=== PATIENT | male | born 1955 | race Caucasian/White ===

== ENCOUNTER → 2017-03-11 | Outpatient (CLI) | payer OTHER ==
[~2017-03-11] MED LIST: ALBU.5I NEB; CALC600T25 PO; CHOL1CAP34 PO; DOCU2.5C PO; IBUP800T23 PO; IPRA17I INH; OXYC1TAB63 PO; TIOT1AER2 INH
[2017-03-11 13:26] LABS: HEMATOCRIT 46.8 % (39.0-51.0); MEAN CELL VOLUME 96.8 FL (80.0-100.0); MEAN CORPUSCULAR HEMOGLOBIN 32.4 PG (27.0-34.0); MEAN CORPUSCULAR HGB CONC 33.4 % (32.0-36.0); PLATELET COUNT 221 TH/MM3 (150-450); RED BLOOD COUNT 4.83 MIL/MM3 (4.50-5.90); RED CELL DISTRIBUTION WIDTH 14.2 % (11.6-17.2); REVIEW FLAG FINAL; WHITE BLOOD COUNT 7.1 TH/MM3 (4.0-11.0)
[2017-03-11 13:30] LABS: BLOOD, URINE NEG (NEG); COMMENT (UR) CULT NOT INDICATED; CULTURE IF INDICATED CULT NOT INDICATED; GLUCOSE,URINE NEG (NEG); HYALINE CAST, URINE 1 /lpf (RARE); KETONE, URINE NEG (NEG); MUCUS URINE FEW /lpf (OCC); NITRITE,URINE NEG (NEG); TRANSITIONAL EPI CELLS, URINE <1 /hpf; URINE COLOR YELLOW (YELLW/STRAW)
[2017-03-11 13:33] LABS: APTT (PATIENT) 25.4 SEC (24.3-30.1); INTERNATIONAL NORMALIZED RATIO 0.9 RATIO; PROTHROMBIN TIME - PATIENT 9.8 SEC (9.8-11.6)
--- NOTE | 2017-03-11 13:35 | RADRPT ---
EXAM DATE/TIME: 03/11/2017 13:07 [facility] COMPARISON: No previous studies available for comparison. INDICATIONS : Per-op thoracotomy. Evaluate for pneumothorax, pneumonia, or communicable diseases. MEDICAL HISTORY : None. SURGICAL HISTORY : None. ENCOUNTER: Initial ACUITY: 1 day PAIN SCORE: 0/10 LOCATION: Bilateral chest FINDINGS: There is a nodular density overlying the axillary region of the right lung. Lungs are otherwise clear . No evidence of pleural effusion. Cardiac contours are satisfactory. Thoracic skeleton is grossly in tact. CONCLUSION: Right upper lobe lung nodule. Erik Tam MD on March 11, 2017 at 13:32 Board Certified Radiologist. This report was verified electronically.
[2017-03-11 13:50] LABS: BICARBONATE 27.8 MEQ/L (21.0-32.0); POTASSIUM 3.6 MEQ/L (3.5-5.1)
--- NOTE | 2017-03-12 14:43 | EKG ---
Date Performed: 03/11/2017 Time Performed: 12:41:38 PTAGE: 61 years EKG: Sinus rhythm POSSIBLE LEFT ATRIAL ENLARGEMENT BORDERLINE ECG NO PREVIOUS TRACING DOCTOR: Mikael Richard Interpretating Date/Time 03/12/2017 14:37:36
== END ==
LOC: CPRE 12:14
PROVIDERS: ATTEND Thoracic Surgery (Cardiothoracic Vascular Surgery)
DX: Z01.812 Encounter for preprocedural laboratory examination (principal); Z01.811 Encounter for preprocedural respiratory examination; Z01.810 Encounter for preprocedural cardiovascular examination; R91.8 Other nonspecific abnormal finding of lung field; R94.31 Abnormal electrocardiogram [ECG] [EKG]
CPT/HCPCS: 36415; 71020; 80048; 81001; 85027; 85610; 85730; 93005

== ENCOUNTER 2017-03-18 06:02 | Inpatient (IN) | payer OTHER ==
[2017-03-18] VITALS (14 sets, daily range): BP systolic 92–103; BP diastolic 58–67; PULSE 66–87; RESP 17–19; TEMP 97.9–98.6; O2SAT 95–98
[~2017-03-18] VITALS: Ht 177.8 cm; Wt 79.0 kg
[~2017-03-18 06:02] MED LIST changes: -DOCU2.5C PO; -OXYC1TAB63 PO
[2017-03-18] MEDS ORDERED: INSULIN HUMAN REGULAR 1,000 UNITS/10 ML VIAL SQ PRN (06:30)
[2017-03-18] MEDS ORDERED: SODIUM CHLORID 0.9% 500 ML IV PRN (06:30)
[2017-03-18] MEDS ORDERED: POVIDONE IODINE 5% (ANTISEPSIS KIT) 4 APPLICATIONS EACH NARE PRN (06:30)
[2017-03-18] MEDS ORDERED: METOPROLOL TARTRATE 25 MG TAB PO PRN (06:30)
[2017-03-18] MEDS ORDERED: CHLORHEXIDINE GLUCONATE 2 % 1 PACK (2 CLOTHS) TOPICAL PRN (06:30)
[2017-03-18] MEDS ORDERED: LACTATED RINGER'S 1000 ML IV PRN (06:30)
[2017-03-18] MEDS ORDERED: ACETAMINOPHEN 1000 MG/100 ML 100 ML IV ONE (07:08)
[2017-03-18] MEDS ORDERED: SUGAMMADEX SODIUM 200 MG/2 ML VIAL IV PUSH ONE ×2 (07:08)
[2017-03-18] MEDS ORDERED: FAMOTIDINE 20 MG/2 ML VIAL ONE (07:11)
[2017-03-18] MEDS ORDERED: MIDAZOLAM HCL 2 MG/2 ML VIAL ONE (07:11)
[2017-03-18] MEDS ORDERED: RESP: ALBUTEROL 2.5 MG/3 ML NEB (SCH) ONE (07:17)
[2017-03-18] MEDS: BUPIVACAINE LIPOSO PF 1.3% INJ 20 ML, DEXAMETHASONE INJ 4 MG, MORPHINE INJ 8 MG in SODI... IRRIGATION SCH ×2 (10:26→10:27)
--- NOTE | 2017-03-18 10:58 | PD.OP ---
cc: Fredi Hair MD; Carlene Parker MD Operative Report Date of Surgery: Mar 18, 2017 Preoperative Diagnosis: Postoperative Diagnosis: Procedure: 1. Right Posterolateral Muscle Sparing Thoracotomy 2. Right Upper Lobectomy 3. Mediastinal Lymph Node Dissection 4. Intercostal Nerve Block Surgeon: Fredi Hair Die Sizer(s): Demarco Verduzco Operation and Findings: PREOPERATIVE DIAGNOSIS 1. Right Upper Lobe Lung Pneumatocele 2. COPD POSTOPERATIVE DIAGNOSIS 1. Right Upper Lobe Adenocarcinoma 2. COPD PROCEDURES 1. Right Posterolateral Muscle Sparing Thoracotomy 2. Right Upper Lobectomy 3. Mediastinal Lymph Node Dissection 4. Intercostal Nerve Block SURGEON Fredi Hair MD BOAT LOADER HELPER JEET Becerra ANESTHESIA General double-lumen endotracheal. PSYCHOLOGIST EDUCATIONAL MOHIT Downing MD DRAINS [address] COUNTS Needle, sponge, and instrument counts were correct. COMPLICATIONS None. INDICATION FOR PROCEDURE The patient is a 61 yo gentleman with RUL PET positive cystic mass, presenting for surgical resection of above pathology. DESCRIPTION OF PROCEDURE The patient was brought to the operating suite and placed in supine position. Following satisfactory induction of general double-lumen endotracheal anesthesia , the patient was placed in the left lateral decubitus position. The right chest and surrounding area was then prepped and draped in the usual sterile fashion. A standard muscle-sparing posterolateral thoracotomy was performed and the serratus anterior muscle spared. The pleural space was entered. Exploration of the chest revealed a mass in the right upper lobe. Wedge resection of the mass was performed and the specimen sent for histological analysis. Frozen section was consistent with Adenocarcinoma. Plans were made to proceed with a formal lobectomy. The inferior pulmonary ligament was divided. The pulmonary arterial supply to the upper lobe was identified, dissected free and divided as was the pulmonary venous supply. The bronchus was then dissected free, clamped and the remaining lung was insufflated without any difficulty. Lymph node dissections of level 4, 7, 9, 10 and 11 were performed along with the course of this removal. Some of these were retained with the specimen. Specimen was removed from the chest. At this point the closure was undertaken. A 28- Sloven[place] chest tube was placed. Intercostal nerve block was performed at the level of the incision and 3 rib spaces above and below using Exparel with Decadron solution. The pericostal space was approximated with interrupted #1 Vicryl sutures in a pericostal fashion. The serratus fascia and Latissimus dorsi were closed with running 0-Vicryl and the remaining wounds closed with 3-0 , and 4-0 Monocryl. The patient tolerated the procedure well and postoperatively went to the PACU in stable condition. Fredi Hair MD Mar 18, 2017 10:58
[2017-03-18] MEDS ORDERED: SODIUM CHLORIDE 0.9% FLUSH 5 ML FLUSH IV FLUSH PRN (11:00)
[2017-03-18] MEDS ORDERED: RESP: ALBUTEROL 2.5 MG/3 ML NEB (PRN) NEB (11:00)
[2017-03-18] MEDS ORDERED: Post-op Orders (for Pharmacy) MISC OTHER ONE (11:00)
[2017-03-18] MEDS ORDERED: ONDANSETRON HCL 4 MG/2 ML VIAL IV PUSH PRN (11:00)
[2017-03-18] MEDS ORDERED: ACETAMINOPHEN 325 MG TAB PO PRN (11:00)
[2017-03-18] MEDS ORDERED: DO NOT ADM ANY ANTICOAGULANT DRUGS PRN (11:12)
[2017-03-18] MEDS ORDERED: *morphine SULFATE 8 MG/ML PERIprocedure ONLY ONE ×2 (11:20→12:16)
--- NOTE | 2017-03-18 11:40 | RADRPT ---
EXAM DATE/TIME: 03/18/2017 11:10 [facility] COMPARISON: CHEST PA & LAT, March 11, 2017, 13:07. INDICATIONS : Post thoracotomy. MEDICAL HISTORY : None. SURGICAL HISTORY : None. ENCOUNTER: Initial ACUITY: 1 day PAIN SCORE: 0/10 LOCATION: Bilateral chest FINDINGS: A single view of the chest demonstrates the lungs to be symmetrically aerated without evidence of mas s, infiltrate or effusion. A right thoracostomy tube observed without pneumothorax. A small amount of subcutaneous air is seen involving the right chest wall. The cardiomediastinal contours are unremar kable. Osseous structures are intact. CONCLUSION: 1. Right thoracostomy tube without pneumothorax. Doe Moss Jr., MD on March 18, 2017 at 11:37 Board Certified Radiologist. This report was verified electronically.
[2017-03-18] MEDS ORDERED: PROPOFOL 200 MG/20 ML AMP IV ONE (12:00)
[2017-03-18] MEDS ORDERED: ceFAZolin INJ 1,000 MG VIAL IV ONE (12:00)
[2017-03-18] MEDS ORDERED: DEXAMETHASONE SOD PHOS 4 MG/ML VIAL IV ONE (12:00)
[2017-03-18] MEDS ORDERED: PHENYLEPH/NS 1000 MCG/10 ML SYR IV ONE (12:00)
[2017-03-18] MEDS ORDERED: SODIUM CHLORIDE 0.9% 20 ML VIAL IV ONE (12:00)
[2017-03-18] MEDS ORDERED: ROCURONIUM INJ 50 MG/5 ML SYRINGE IV PUSH ONE (12:00)
[2017-03-18] MEDS ORDERED: ONDANSETRON HCL 4 MG/2 ML VIAL IV PUSH ONE (12:00)
[2017-03-18] MEDS ORDERED: ePHEDrine/NS 25 MG/5 ML SYR IV ONE (12:00)
[2017-03-18] MEDS ORDERED: LIDOCAINE HCL 1% PF 5 ML AMPULE OTHER ONE (12:00)
[2017-03-18] MEDS ORDERED: MORPHINE SULFATE 4 MG/ML INJ IV ONE (12:00)
[2017-03-18] MEDS ORDERED: SUCCINYLCHOLINE CHLORIDE 100 MG/5 ML SYRINGE IV PUSH ONE (12:00)
[2017-03-18] MEDS: KETOROLAC TROMETHAMINE 30 MG/ML (IVP) VIAL IV PUSH SCH ×2 (12:30→20:41)
[2017-03-18] MEDS: ACETAMINOPHEN 1000 MG/100 ML 100 ML IV SCH ×2 (12:31→20:41)
[2017-03-18] MEDS: oxyCODONE/ACETAMINOPHEN 5 MG/325 MG TAB PO PRN ×3 (14:52→22:50)
[2017-03-18] MEDS: RESP: ALBUTEROL 2.5 MG/3 ML NEB (SCH) NEB ×2 (15:47→22:24)
[2017-03-18] MEDS: DOCUSATE CALCIUM 240 MG CAP PO SCH (20:41)
[2017-03-18] MEDS: PANTOPRAZOLE SOD 40 MG DELAYED RELEASE TAB PO SCH (20:41)
[2017-03-18] MEDS: SODIUM CHLORIDE 0.9% FLUSH 5 ML FLUSH IV FLUSH SCH (20:42)
[2017-03-19] VITALS (22 sets, daily range): BP systolic 96–122; BP diastolic 63–69; PULSE 64–99; RESP 16–17; TEMP 98.2–98.8; O2SAT 93–97
[2017-03-19] MEDS: KETOROLAC TROMETHAMINE 30 MG/ML (IVP) VIAL IV PUSH SCH ×2 (00:33→06:11)
[2017-03-19] MEDS: ACETAMINOPHEN 1000 MG/100 ML 100 ML IV SCH ×2 (00:36→06:31)
[2017-03-19] MEDS: RESP: ALBUTEROL 2.5 MG/3 ML NEB (SCH) NEB ×4 (03:52→19:59)
--- NOTE | 2017-03-19 05:01 | RADRPT ---
EXAM DATE/TIME: 03/19/2017 04:25 [facility] COMPARISON: CHEST SINGLE AP, March 18, 2017, 11:10. INDICATIONS : Shortness of breath, possible pulmonary disease. MEDICAL HISTORY : None. SURGICAL HISTORY : Thoacotomy ENCOUNTER: Subsequent ACUITY: 2 days PAIN SCORE: 4/10 LOCATION: Bilateral chest FINDINGS: Right thoracostomy tube is stable in good position. Bibasilar parenchymal opacity. Cardiac contour is grossly unchanged. CONCLUSION: Minimal basilar parenchymal opacities Erik Tam MD on March 19, 2017 at 4:59 Board Certified Radiologist. This report was verified electronically.
[2017-03-19 05:45] LABS: AUTOMATED NEUTROPHIL # 4.9 TH/MM3 (1.8-7.7); BASOPHIL % 0.3 % (0.0-2.0); EOSINOPHIL % 0.3 % (0.0-4.0); HEMATOCRIT 38.1 % (39.0-51.0); HEMO FLAGS DIFF FINAL; LYMPH % 13.1 % (9.0-44.0); LYMPHOCYTE # 0.8 TH/MM3 (1.0-4.8); MEAN CELL VOLUME 96.3 FL (80.0-100.0); MEAN CORPUSCULAR HEMOGLOBIN 32.9 PG (27.0-34.0); MEAN CORPUSCULAR HGB CONC 34.1 % (32.0-36.0); MONO % 7.8 % (0.0-8.0); NEUT % 78.5 % (16.0-70.0); PLATELET COUNT 181 TH/MM3 (150-450); RED BLOOD COUNT 3.96 MIL/MM3 (4.50-5.90); RED CELL DISTRIBUTION WIDTH 14.5 % (11.6-17.2); WHITE BLOOD COUNT 6.2 TH/MM3 (4.0-11.0)
[2017-03-19 06:04] LABS: BICARBONATE 27.3 MEQ/L (21.0-32.0); POTASSIUM 3.9 MEQ/L (3.5-5.1)
[2017-03-19] MEDS: SODIUM CHLORIDE 0.9% FLUSH 5 ML FLUSH IV FLUSH SCH ×2 (09:00→20:11)
[2017-03-19] MEDS: oxyCODONE/ACETAMINOPHEN 5 MG/325 MG TAB PO PRN ×5 (10:28→19:42)
--- NOTE | 2017-03-19 16:27 | PD.CAR.PN ---
CVT Progress Note Subjective/Hospital Course: 61male, recent dx of adenocarcinoma of the lung , pmh: corneal transplants, COPD, Lung CA surgery 03/18 1. Right Posterolateral Muscle Sparing Thoracotomy 2. Right Upper Lobectomy 3. Mediastinal Lymph Node Dissection 03/19 pt very painful chest tube in place, no air leak re-eval pain meds, pulm toileting Objective: GENERAL: SKIN: Warm and dry. incision intact and well approximated right postero lateral chest wall HEAD: Normocephalic. EYES: No scleral icterus. No injection or drainage. NECK: Supple, trachea midline. No JVD or lymphadenopathy. CARDIOVASCULAR: Regular rate and rhythm without murmurs, gallops, or rubs. RESPIRATORY: Breath sounds equal bilaterally. No accessory muscle use. chest tube right no air leak drained 80cc/ 12 hrs GASTROINTESTINAL: Abdomen soft, non-tender, nondistended. MUSCULOSKELETAL: No cyanosis, or edema. BACK: Nontender without obvious deformity. No CVA tenderness. Vital Signs Date Time Temp Pulse Resp B/P (MAP) Pulse Ox O2 Delivery O2 Flow Rate FiO2 03/19/17 15:43 94 03/19/17 13:55 16 03/19/17 12:03 93 03/19/17 09:50 95 21 03/19/17 08:15 16 03/19/17 07:45 98.6 81 16 114/66 (82) 96 03/19/17 07:15 77 03/19/17 06:41 18 03/19/17 06:27 75 03/19/17 05:07 73 03/19/17 04:02 65 03/19/17 03:00 66 03/19/17 03:00 98.2 72 17 96/66 (76) 97 03/19/17 02:21 64 03/19/17 01:28 67 03/19/17 00:04 66 03/18/17 23:07 98.6 70 17 92/58 (69) 97 03/18/17 23:00 69 03/18/17 22:24 98 Nasal Cannula 2.00 03/18/17 22:00 70 03/18/17 21:28 18 03/18/17 21:00 72 03/18/17 20:00 79 03/18/17 19:15 98.1 70 17 97/61 (73) 95 03/18/17 19:00 66 03/18/17 18:03 76 03/18/17 17:00 75 Labs: Laboratory Tests Test 03/19/17 05:19 White Blood Count 6.2 TH/MM3 (4.0-11.0) Red Blood Count 3.96 MIL/MM3 (4.50-5.90) Hemoglobin 13.0 GM/DL (13.0-17.0) Hematocrit 38.1 % (39.0-51.0) Mean Corpuscular Volume 96.3 FL (80.0-100.0) Mean Corpuscular Hemoglobin 32.9 PG (27.0-34.0) Mean Corpuscular Hemoglobin Concent 34.1 % (32.0-36.0) Red Cell Distribution Width 14.5 % (11.6-17.2) Platelet Count 181 TH/MM3 (150-450) Mean Platelet Volume 7.3 FL (7.0-11.0) Neutrophils (%) (Auto) 78.5 % (16.0-70.0) Lymphocytes (%) (Auto) 13.1 % (9.0-44.0) Monocytes (%) (Auto) 7.8 % (0.0-8.0) Eosinophils (%) (Auto) 0.3 % (0.0-4.0) Basophils (%) (Auto) 0.3 % (0.0-2.0) Neutrophils # (Auto) 4.9 TH/MM3 (1.8-7.7) Lymphocytes # (Auto) 0.8 TH/MM3 (1.0-4.8) Monocytes # (Auto) 0.5 TH/MM3 (0-0.9) Eosinophils # (Auto) 0.0 TH/MM3 (0-0.4) Basophils # (Auto) 0.0 TH/MM3 (0-0.2) CBC Comment DIFF FINAL Differential Comment Blood Urea Nitrogen 14 MG/DL (7-18) Creatinine 1.19 MG/DL (0.60-1.30) Random Glucose 114 MG/DL (74-106) Calcium Level 7.6 MG/DL (8.5-10.1) Sodium Level 139 MEQ/L (136-145) Potassium Level 3.9 MEQ/L (3.5-5.1) Chloride Level 105 MEQ/L (98-107) Carbon Dioxide Level 27.3 MEQ/L (21.0-32.0) Anion Gap 7 MEQ/L (5-15) Estimat Glomerular Filtration Rate 62 ML/MIN (>89) Result Diagram: 03/19/1751803/19/17518 Telemetry: NSR (1) COPD (chronic obstructive pulmonary disease) Plan: nebs wean 02 as tolerated (2) right upper lobe lung cancer (3) 1. Right Posterolateral Muscle Sparing Thoracotomy Plan: await path pulm toileting nebs ezderrickp OOB, consult CM for [facility] pain control Pooja Crum Mar 19, 2017 16:26
--- NOTE | 2017-03-19 16:31 | HHI.FF ---
Face to Face Verification Diagnosis: (1) COPD (chronic obstructive pulmonary disease) (2) 1. Right Posterolateral Muscle Sparing Thoracotomy (3) right upper lobe lung cancer Home Health Nursing Order: Signs/symptoms of disease process Medication education-adverse effect Wound care and dressing changes Nursing assessment with vital signs Instructions: Thoracic Surgery patients Mandatory frequency Assess and evaluation, 2-3 x a week for one week Initial visit 1. Review post chest surgery instructions chest precautions, Activity, Elastic hose, Incision care, Driving, Incentive spirometry, Smoking, [place] , Work and other) 2. Need Betadine to paint incision 3. Medication reconciliation 4. Importance of follow up care/ check on appointments 5. Make calendar record temperature daily 6. When to call Home nurse, review instructions, phone list 7. Incentive Spirometry, demonstration Visit 1- Begin discharge instruction for patient family and/ or caregiver using teach back method- 1. Signs and symptoms of infection 2. Disease characteristics 3. Medicines and side effects 4. Foods and nutrition/ appetite 5. Infection control/ hand washing/ hygiene Visit 2- Continue teaching 1. Discharge instructions- include additional information on smoking cessation , Visit 3- Continue teaching- 1. Cough and deep breathing, incision monitoring. For any questions please call : / [facility] Cardiothoracic Surgery Incentive spirometry Q1 hr x 10, while awake, also use acapella device hourly whole awake chest wall Precautions: NO pushing or pulling, ( pt must use chest pillow to support chest with all activities and with coughing Daily incision care: ok to shower daily, no tub bath.( two days after chest tube removed / 48 hrs ) Wash all incisions with liquid dial soap, clean wash cloth to each site, rinse and pat dry. Observe for any signs of infection, such as drainage which is dark yellow, bonilla, green or foul smelling. Immediately report to the surgeon any drainage from the chest incision, or legs , and for any abnormal drainage from the chest tube sites. Notify surgeon if any temp >101.5 degrees F. When specialty dressing removed/ or if you do not have one, continue to shower daily as above, then rinse and pat incision dry and paint with betadine daily x 5 days. Allow steri strips to fall off if you have any. Avoid lotions, creams, salves, oils, etc. for the first month F/U appointment: as per [place] instructions: PCP in 2 weeks, CV surgeon 2 weeks, Lock Plater 3-4 weeks For any questions regarding incisions/ dressing / meds / post op care or above Symptoms, Thursday 8am-5pm Heart & Vascular Surgery Office ( Dr. Hair & Dr. Camp), After Hours / Nights (5pm -8am) Weekends and Holidays Please call [facility] Cardiac Intermediate Care Unit (CIC) Charge Nurse I have seen patient Donnie Garay on 03/19/17. My clinical findings support the need for the requested home health care services because: Patient has SOB Deconditioned w/ increased weakness I certify that my clinical findings support that this patient is homebound because: Post-op weakness Pooja Crum Mar 19, 2017 16:31
[2017-03-19] MEDS: KETOROLAC TROMETHAMINE 30 MG/ML (IVP) VIAL IV PUSH PRN (18:00)
[2017-03-19] MEDS: PANTOPRAZOLE SOD 40 MG DELAYED RELEASE TAB PO SCH (20:10)
[2017-03-19] MEDS: DOCUSATE CALCIUM 240 MG CAP PO SCH (20:10)
[2017-03-19] MEDS: DOCUSATE SODIUM 100 MG CAP PO SCH (20:10)
[2017-03-20] VITALS (28 sets, daily range): BP systolic 111–116; BP diastolic 68–73; PULSE 84–114; RESP 16–20; TEMP 97.8–98.5; O2SAT 95–97
[2017-03-20] MEDS: oxyCODONE/ACETAMINOPHEN 5 MG/325 MG TAB PO PRN ×6 (00:12→19:06)
[2017-03-20] MEDS: KETOROLAC TROMETHAMINE 30 MG/ML (IVP) VIAL IV PUSH PRN ×4 (01:06→22:14)
[2017-03-20] MEDS: RESP: ALBUTEROL 2.5 MG/3 ML NEB (SCH) NEB ×4 (04:10→19:47)
[2017-03-20] MEDS: POLYETHYLENE GLYCOL 17 GM PKG PO SCH (07:29)
[2017-03-20] MEDS: DOCUSATE SODIUM 100 MG CAP PO SCH ×2 (07:29→22:12)
[2017-03-20] MEDS: SODIUM CHLORIDE 0.9% FLUSH 5 ML FLUSH IV FLUSH SCH ×2 (09:00→21:00)
--- NOTE | 2017-03-20 15:04 | PD.CAR.PN ---
CVT Progress Note Subjective/Hospital Course: 61male, recent dx of adenocarcinoma of the lung , pmh: corneal transplants, COPD, Lung CA surgery 03/18 1. Right Posterolateral Muscle Sparing Thoracotomy 2. Right Upper Lobectomy 3. Mediastinal Lymph Node Dissection 03/19 pt very painful chest tube in place, no air leak re-eval pain meds, pulm toileting 03/20 chest tube removed without difficultly path discussed with pt / histologic type invasive adenocarcinoma acinar predominant no lymph nodes involved , no pleural invasion pT1c pNO eval for dc in am after CXR Objective: GENERAL: SKIN: Warm and dry. incision intact and well approximated right postero lateral chest wall HEAD: Normocephalic. EYES: No scleral icterus. No injection or drainage. NECK: Supple, trachea midline. No JVD or lymphadenopathy. CARDIOVASCULAR: Regular rate and rhythm without murmurs, gallops, or rubs. RESPIRATORY: Breath sounds equal bilaterally. No accessory muscle use. chest tube dc , vaseline gauze in plac e GASTROINTESTINAL: Abdomen soft, non-tender, nondistended. MUSCULOSKELETAL: No cyanosis, or edema. BACK: Nontender without obvious deformity. No CVA tenderness. Vital Signs Date Time Temp Pulse Resp B/P (MAP) Pulse Ox O2 Delivery O2 Flow Rate FiO2 03/20/17 11:50 92 03/20/17 07:37 98.0 91 18 112/69 (83) 95 03/20/17 07:37 91 03/20/17 06:02 91 03/20/17 05:05 88 03/20/17 05:04 18 03/20/17 04:06 92 03/20/17 03:50 98.5 89 17 113/68 (83) 95 03/20/17 03:13 84 03/20/17 02:08 89 03/20/17 02:08 18 03/20/17 01:15 92 03/20/17 00:03 88 03/19/17 23:08 98.3 87 16 116/67 (83) 93 03/19/17 23:00 86 03/19/17 22:00 97 03/19/17 21:00 98 03/19/17 20:00 92 03/19/17 20:00 97 03/19/17 19:15 98.8 91 16 117/63 (81) 96 03/19/17 19:15 95 03/19/17 18:18 99 03/19/17 17:39 16 03/19/17 17:25 88 03/19/17 16:32 92 03/19/17 16:29 98.6 98 16 122/69 (86) 94 03/19/17 15:43 94 Result Diagram: 03/19/17 0519 03/19/17 0519 (1) COPD (chronic obstructive pulmonary disease) Plan: nebs wean 02 as tolerated (2) right upper lobe lung cancer (3) 1. Right Posterolateral Muscle Sparing Thoracotomy Plan: path noted pulm toileting nebs ezpap chest tube dc check CXR in am , if stable dc in am OOB, consult CM for [facility] pain control Pooja Crum Mar 20, 2017 15:04
[2017-03-20] MEDS ORDERED: DOCU2.5C PO (15:11)
[2017-03-20] MEDS ORDERED: OXYC1TAB63 PO (15:11)
--- NOTE | 2017-03-20 15:19 | HHI.DS ---
RadamesPooja SharriRandi [facility] 03/20/17 1519: Discharge Summary Admission Date Mar 18, 2017 at 06:02 Discharge Date: Mar 21, 2017 Admitting Diagnosis lung mass, lung cancer (1) COPD (chronic obstructive pulmonary disease) Diagnosis: Principal ICD Codes: J44.9 - Chronic obstructive pulmonary disease, unspecified Status: Chronic (2) 1. Right Posterolateral Muscle Sparing Thoracotomy Diagnosis: Principal Status: Acute (3) right upper lobe lung cancer Diagnosis: Principal Status: Chronic Procedures Right Posterolateral Muscle Sparing Thoracotomy 03/18 2. Right Upper Lobectomy 3. Mediastinal Lymph Node Dissection Brief History 61male, recent dx of adenocarcinoma of the lung , pmh: corneal transplants, COPD, Lung CA surgery 03/18 1. Right Posterolateral Muscle Sparing Thoracotomy 2. Right Upper Lobectomy 3. Mediastinal Lymph Node Dissection CBC/BMP: 03/19/17 0519 03/19/17 0519 Significant Findings Laboratory Tests Test 03/19/17 05:19 Red Blood Count 3.96 MIL/MM3 (4.50-5.90) Hematocrit 38.1 % (39.0-51.0) Neutrophils (%) (Auto) 78.5 % (16.0-70.0) Lymphocytes # (Auto) 0.8 TH/MM3 (1.0-4.8) Random Glucose 114 MG/DL (74-106) Calcium Level 7.6 MG/DL (8.5-10.1) Estimat Glomerular Filtration Rate 62 ML/MIN (>89) Imaging Last Impressions Chest X-Ray 03/19/17 0500 Signed Impressions: Service Date/Time: March 04:25 - CONCLUSION: Minimal basilar parenchymal opacities Erik Tam MD PE at Discharge GENERAL: SKIN: Warm and dry. incision intact right postero lateral chest wall HEAD: Normocephalic. EYES: No scleral icterus. No injection or drainage. NECK: Supple, trachea midline. No JVD or lymphadenopathy. CARDIOVASCULAR: Regular rate and rhythm without murmurs, gallops, or rubs. RESPIRATORY: Breath sounds equal bilaterally. No accessory muscle use. dressing over chest tube site GASTROINTESTINAL: Abdomen soft, non-tender, nondistended. MUSCULOSKELETAL: No cyanosis, or edema. BACK: Nontender without obvious deformity. No CVA tenderness. Hospital Course 03/19 pt very painful chest tube in place, no air leak re-eval pain meds, pulm toileting 03/20 chest tube removed without difficulty check cxr in am , if stable then ok to dc continue IS ambulate histologic type invasive adenocarcinoma acinar predominant no lymph nodes involved , no pleural invasion pT1c pNO Pt Condition on Discharge: Good Discharge Disposition: Disch w/ Home Health Serv Discharge Instructions DIET: Follow Instructions for: Heart Healthy Diet Activities you can perform: Full Weight Bearing, Shower Only-No Bath Activities to avoid: Driving Additional Activity Instructio: no lifting > 8 lbs or gallon of milk New Medications: Docusate Calcium (Sm Stool Softener) 240 Mg Cap 240 MG PO HS for Constipation, #30 CAP 0 Refills Oxycodone-Acetaminophen (Oxycodone-Acetaminophen) 5-325 mg Tab 1 TAB PO Q4HR PRN for PAIN SCALE 3 TO 5, #40 TAB 0 Refills Continued Medications: Albuterol Neb (Albuterol Neb) 2.5 Mg/0.5 Ml Neb 2.5 MG NEB TID NEB PRN for SHORTNESS OF BREATH, #90 NEBULE 0 Refills Note: The Albuterol Sulfate Inhalation Solution is concentrated and must be diluted. Read complete instructions carefully before using. Ibuprofen (Ibuprofen) 800 Mg Tab 800 MG PO Q6HR PRN for PAIN, #40 TAB 0 Refills Ipratropium HFA 12.9 GM Inh (Atrovent HFA 12.9 GM Inh) 17 Mcg/Actuation Aer 2 PUFF INH Q6HR PRN for SHORTNESS OF BREATH, #1 INHALER 0 Refills Ana Camp MD 03/21/17 1203: Discharge Summary CBC/BMP: 03/19/17 0519 03/19/17518 Discharge Instructions New Medications: Docusate Calcium (Sm Stool Softener) 240 Mg Cap 240 MG PO HS for Constipation, #30 CAP 0 Refills Oxycodone-Acetaminophen (Oxycodone-Acetaminophen) 5-325 mg Tab 1 TAB PO Q4HR PRN for PAIN SCALE 3 TO 5, #40 TAB 0 Refills Continued Medications: Albuterol Neb (Albuterol Neb) 2.5 Mg/0.5 Ml Neb 2.5 MG NEB TID NEB PRN for SHORTNESS OF BREATH, #90 NEBULE 0 Refills Note: The Albuterol Sulfate Inhalation Solution is concentrated and must be diluted. Read complete instructions carefully before using. Ibuprofen (Ibuprofen) 800 Mg Tab 800 MG PO Q6HR PRN for PAIN, #40 TAB 0 Refills Ipratropium HFA 12.9 GM Inh (Atrovent HFA 12.9 GM Inh) 17 Mcg/Actuation Aer 2 PUFF INH Q6HR PRN for SHORTNESS OF BREATH, #1 INHALER 0 Refills Pooja Crum Mar 20, 2017 15:19 Ana Camp MD Mar 21, 2017 12:03
[2017-03-20] MEDS: DOCUSATE CALCIUM 240 MG CAP PO SCH (22:12)
[2017-03-20] MEDS: PANTOPRAZOLE SOD 40 MG DELAYED RELEASE TAB PO SCH (22:13)
[2017-03-20] MEDS: MAGNESIUM HYDROXIDE SUSP 30 ML CUP PO PRN (23:18)
[2017-03-21] VITALS (13 sets, daily range): BP systolic 112–120; BP diastolic 68–76; PULSE 74–94; RESP 14–18; TEMP 97.8–98.4; O2SAT 96–99
[2017-03-21] MEDS: oxyCODONE/ACETAMINOPHEN 5 MG/325 MG TAB PO PRN ×3 (01:40→09:32)
[2017-03-21] MEDS: RESP: ALBUTEROL 2.5 MG/3 ML NEB (SCH) NEB ×2 (03:55→10:14)
[2017-03-21] MEDS: KETOROLAC TROMETHAMINE 30 MG/ML (IVP) VIAL IV PUSH PRN ×2 (04:29→11:07)
--- NOTE | 2017-03-21 08:32 | RADRPT ---
EXAM DATE/TIME: 03/21/2017 08:16 [facility] COMPARISON: CHEST SINGLE AP, March 19, 2017, 4:25. INDICATIONS : Removal of right sided chest tube MEDICAL HISTORY : None. SURGICAL HISTORY : Thoacotomy ENCOUNTER: Initial ACUITY: 1 day PAIN SCORE: 0/10 LOCATION: Right chest FINDINGS: The right-sided chest tube has been removed. There is a small right apical pneumothorax measuring 9 m m. There is some platelike atelectasis in the left lower lung which is stable. Otherwise, the lungs a re grossly clear. There are no pleural effusions. The heart size is within normal limits. The bony st ructures are stable. CONCLUSION: 1. Status post removal of right-sided chest tube. 2. Small right apical pneumothorax of 9 mm. 3. Left lower lung atelectasis. Roland Baez MD on March 21, 2017 at 8:30 Board Certified Radiologist. This report was verified electronically.
[2017-03-21] MEDS: SODIUM CHLORIDE 0.9% FLUSH 5 ML FLUSH IV FLUSH SCH (09:00)
[2017-03-21] MEDS: DOCUSATE SODIUM 100 MG CAP PO SCH (09:27)
[2017-03-21] MEDS: POLYETHYLENE GLYCOL 17 GM PKG PO SCH (09:27)
[2017-03-21] MEDS: MAGNESIUM HYDROXIDE SUSP 30 ML CUP PO PRN (09:31)
== END 2017-03-21 12:25 | disposition home health service (06) | DRG 165 ==
LOC: HSDI 06:02 → EDUNIT# 07:30 → HCPC 13:00
PROVIDERS: ADMIT Thoracic Surgery (Cardiothoracic Vascular Surgery); ATTEND Thoracic Surgery (Cardiothoracic Vascular Surgery)
PROC: 07B70ZX Excision of Thorax Lymphatic, Open Approach, Diagnostic (ICD-10-PCS; 2017-03-18)
PROC: 0BBC0ZX Excision of Right Upper Lung Lobe, Open Approach, Diagnostic (ICD-10-PCS; 2017-03-18)
PROC: 3E0T3BZ Introduction of Anesthetic Agent into Peripheral Nerves and Plexi, Percutaneous Approach (ICD-10-PCS; 2017-03-18)
PROC: 0BTC0ZZ Resection of Right Upper Lung Lobe, Open Approach (ICD-10-PCS; principal; 2017-03-18 07:18)
DX: C34.11 Malignant neoplasm of upper lobe, right bronchus or lung (principal); J44.9 Chronic obstructive pulmonary disease, unspecified; F17.200 Nicotine dependence, unspecified, uncomplicated
CPT/HCPCS: 71010; 80048; 85025; 86850; 86900; 86901; 87015; 87070; 87102; 87116; 87205; 87206; 88305; 88307; 88309; 88331; 94150; 94640; 94664; C9290; J0131; J0330; J0690; J1100; J1885; J2250; J2270; J2370; J2405; J3010; J7120; J7613